=== PATIENT | female | born 1990 | race Caucasian/White ===

== ENCOUNTER → 2017-06-05 | Outpatient (REF) | LOC: WSOH 10:48 | DX: Z02.89 Encounter for other administrative examinations (principal) ==

== ENCOUNTER → 2017-06-07 | Outpatient (REF) | LOC: WSOH 10:53 | DX: Z02.89 Encounter for other administrative examinations (principal) ==

== ENCOUNTER → 2017-06-07 | Outpatient (REF) | LOC: WSOH 15:00 | DX: Z02.1 Encounter for pre-employment examination (principal) ==